=== PATIENT | male | born 1960 | race Caucasian/White ===

== ENCOUNTER 2021-02-06 16:48 | Inpatient (IN) | payer BC ==
[~2021-02-06] VITALS: Ht 182.9 cm; Wt 101.0 kg
--- NOTE | ~2021-02-06 | OP ---
[facility] [address] [place] [address] OPERATIVE REPORT Name: DAYSI COSBY Room: [address] ADM IN M.R.#: [id number] Admission: 02/06/21 Attend Phys: Rudolph Guillen Discharge: Date of : 58 Report #: [id number] THIS REPORT FOR: cc: Laya Phillips Sarah Anne FNP ~ Tonny Mcnair MD DATE OF SERVICE: 02/09/2021 PREOPERATIVE DIAGNOSES: Clot retention, gross hematuria. POSTOPERATIVE DIAGNOSES: Clot retention, gross hematuria with benign prostatic hypertrophy with obstruction. PROCEDURE PERFORMED: Cystoscopy, clot evacuation and fulguration. STAFF SURGEON: Tonny Mcnair MD BALANCE WHEEL ARM BURNISHER: None. ANESTHESIA: General. ESTIMATED BLOOD LOSS: 200 mL of old clot and 15 mL of active bleeding. FINDINGS: 200 mL of old clot in the bladder. Nodular bleeding prostate area, moderate trabeculations noted in the bladder. DRAIN: 22-Indonesian 3-way Capone catheter. INDICATIONS: The patient is a pleasant 60-year-old male admitted for altered mental status, found to have acute kidney injury with creatinine of 15.7. He was requiring emergent dialysis. Capone catheter was placed on admission and noted gross hematuria. Irrigation was initiated and was ch red in color. CT scan showed a bladder full of clot. Tried to hand irrigate at bedside, which was unsuccessful and now presents for cystoscopy, clot evacuation and possible fulguration, possible resection of bladder tumor, possible resection of the prostate. After risks and benefits of the procedure were explained, informed consent was obtained. DESCRIPTION OF PROCEDURE: The patient was taken to the operating room, comfortably placed in the dorsal lithotomy position under adequate general anesthesia. He was sterilely prepped and draped in standard fashion exposing only the genitalia. He is up-to-date within 24 hours of his antibiotic therapy. Appropriate timeout was carried out and all were in agreement. A 25-Indonesian cystoscope with 30-degree angle lens was placed into the urethra. Anterior urethra was normal. Sphincter was intact. Prostate showed [place] [address] OPERATIVE REPORT Name: DAYSI COSBY Room: [address] IN [facility].#: [id number] Admission: 02/06/21 Attend Phys: Rudolph Guillen Discharge: Date of : 58 Report #: [id number] hypertrophy with visual obstruction. Large amount of clot in the bladder, which was immediately aspirated out, approximately 200-300 mL of old clot. Once completed, it was irrigated more until clear. Thereafter, cystoscopy was performed showing actually a nodular prostate ____ protruding in the bladder, active bleeding at the bladder neck. See pictures for details. The bladder was surveyed. Moderate trabeculation was noted. No other abnormalities appreciated in the bladder. The patient in the preoperative area denied any voiding symptoms, elected just to go ahead and rather than resect his prostate, just fulgurate the bleeding. Since a lot of the bleeding was actually not necessarily in the obstructive area, but as it was growing into the bladder neck, the cystoscope was removed and a 28 resectoscope with obturator in place was blindly inserted into the urethra. The obturator was removed. An Rob resectoscope was put in place with a 26-Indonesian loop and then cauterized the bleeding areas at the bladder neck circumferentially. Meticulous hemostasis was obtained. All the clots were removed from the bladder. Care was taken not to damage either ureteral orifice. The resectoscope was removed and a 22-Indonesian 3-way Capone catheter was put in place and secured with 30 mL of sterile water over the catheter guide, crystal clear return, placed to irrigation. He tolerated the procedure extremely well. He was extubated in the operating room, transferred [facility] with assistance with recovery room in stable condition. Continue irrigation overnight. If clear, would hold the irrigation in the morning and to watch urine color and urine output. Consider voiding trial when out of the Intensive Care Unit. By: 1050 [id number] Mcnair MD /heike
--- NOTE | ~2021-02-06 | CON ---
[address] [place] [address] CONSULTATION Name: DAYSI COSBY Room: [address] ADM IN M.R.#: [id number] Admission: 02/06/21 Attend Phys: Rudolph Guillen Discharge: Date of : 58 Report #: [id number] THIS REPORT FOR: cc: Laya Phillips Sarah Anne FNP ~ Kristen Gorman MD DATE OF SERVICE: 02/08/2021 REQUESTING PHYSICIAN: Dr. Dunn. REASON FOR CONSULTATION: Lymphadenopathy. HISTORY OF PRESENT ILLNESS: The patient is a 60-year-old gentleman who is without significant past medical history, who apparently was found by family in acute confusional state. The patient apparently was covered with his feces. He lives at home with his who apparently has underlying dementia and the patient is primary property management specialist. He was brought to the hospital with altered mental status. He was found to have acute kidney injury with creatinine 25 and potassium of 9. He had a Capone catheter placed, had large volume of bloody urine. Renal consult is requested. Urology is requested for service on the case. His kidney function is getting better with hydration. He did not require dialysis. He is diagnosed with urosepsis, UTI. He is on antibiotics. He had a CT scan of abdomen done, which showed retroperitoneal lymphadenopathy. Oncology is consulted. He is sleeping, apparently confused. By nurse report, he is not able to give me any history. According to nurses, there is no known history of significant medical problems. SOCIAL HISTORY: According to chart review. Does not smoke, does not use alcohol. FAMILY HISTORY: Unable to obtain. REVIEW OF SYSTEMS: Unable to obtain. PHYSICAL EXAMINATION: GENERAL: Reveals a well-developed man, sleeping, responding by grimacing when I do physical exam. VITAL SIGNS: Blood pressure 96/71, heart rate 77, respirations 18. NECK: Supple. There is no supraclavicular, axillary lymphadenopathy. HEART: Normal S1, S2. LUNGS: Clear. ABDOMEN: Obese. EXTREMITIES: Lower extremities, no edema. There is a left lower extremity swelling is [place] [address] CONSULTATION Name: DAYSI COSBY Room: [address] IN [facility]#: [id number] Admission: 02/06/21 Attend Phys: Rudolph Guillen Discharge: Date of : 58 Report #: [id number] SKIN: Does not reveal rash. MENTAL STATUS: Lethargic, but responding to stimuli, not responding verbally, not easily arousable. LABORATORY DATA: White count 16.2, hemoglobin 12.6, platelets 271. Total protein 6.5, albumin 3.2. Sodium 150, potassium 3.5, chloride 113, CO2 of 27, BUN 65, creatinine 2.7. Urinalysis: Nitrite positive, leukocyte esterase positive, blood 3+. CT of abdomen and pelvis shows retroperitoneal lymphadenopathy, largest dominant nodule 3/5/4.1 cm. ASSESSMENT AND PLAN: Retroperitoneal lymphadenopathy. Recommend to consider CT-guided biopsy of lymph nodes. Check LDH. Left lower extremity edema. We will order Doppler ultrasound. Acute kidney injury. Management as per Renal. Urinary tract infection. Agree with management. Thank you very much for allowing me to participate in care of this patient. We will follow the patient with you. By: 07 212Kristen Gorman MD /nt
[2021-02-06 17:20] LABS: HEMATOCRIT 40.5 % (42.0-52.0); HEMOGLOBIN 12.6 gm/dL (14.0-18.0); MCH 26.8 pg (26.0-34.0); MCHC 31.1 g/dL (28.0-37.0); MCV 86.1 fL (80.0-100.0); MPV 7.4 fl. (7.2-11.1); NUCLEATED RBCS 0 /100WBC; PLATELET COUNT* 271 thou/uL (150-400); RDW-CV 16.4 % (10.5-14.5); WBC 16.2 thou/uL (4.0-11.0)
[2021-02-06 17:24] VITALS: BP 149/47
[2021-02-06 17:33] LABS: INR 1.1; PROTIME 11.6 Seconds (9.20-11.50)
[2021-02-06 17:44] LABS: URINE BLOOD 3+ (Negative); URINE COLOR DARK YELLOW; URINE GLUCOSE-RANDOM TRACE (Negative); URINE KETONES NEGATIVE (Negative); URINE LEUKOCYTES-REFLEX TRACE (Negative); URINE PROTEIN 3+ (Negative); URINE SPECIFIC GRAVITY 1.025 (1.005-1.030)
[2021-02-06 17:46] LABS: URINE BILIRUBIN 2+ (Negative); URINE NITRITE-REFLEX POSITIVE (Negative)
[2021-02-06 17:46] LABS: CALCIUM 6.1 mg/dL (8.5-10.1); CREATININE 25.5 mg/dL (0.6-1.3)
[2021-02-06 17:47] LABS: URINE CLARITY CLOUDY
[2021-02-06 17:48] LABS: ICTOTEST (BILI CONFIRMATORY) Negative (Negative)
[2021-02-06 17:49] LABS: POTASSIUM 9.7 mmol/L (3.5-5.1)
[2021-02-06 17:50] LABS: BACTERIA-REFLEX None Seen /HPF (None Seen); CASTS None Seen /LPF (None Seen); CRYSTALS None Seen /LPF (None Seen); SQUAMOUS 0-3 Few /LPF (0-3); URINE RBC >20 Many /HPF (0-2); URINE WBC-REFLEX None Seen /HPF (0-5)
[2021-02-06 17:56] LABS: ALBUMIN 3.4 g/dL (3.4-5.0); TOTAL BILIRUBIN 0.5 mg/dL (<0.1-1.0); TOTAL PROTEIN 7.7 g/dL (6.4-8.2)
[2021-02-06 17:57] LABS: ABSOLUTE LYMPHOCYTES 0.6 thou/uL (0.8-5.3); ABSOLUTE MONOCYTES 0.6 thou/uL (0.0-1.2); ABSOLUTE NEUTROPHILS 14.9 thou/uL (1.6-8.1); ATYPICAL LYMPHS 1 %; PLATELET ESTIMATE ADEQUATE
[2021-02-06 19:22] VITALS: BP 149/54
[2021-02-06 19:57] VITALS: BP 148/87
[2021-02-06 21:01] VITALS: BP 119/84
[2021-02-06 21:58] LABS: HEMOGLOBIN 11.6 gm/dL (14.0-18.0)
[2021-02-06 22:01] VITALS: BP 133/80
[2021-02-06 22:15] LABS: CALCIUM 6.1 mg/dL (8.5-10.1); TOTAL BILIRUBIN 0.5 mg/dL (<0.1-1.0); TOTAL PROTEIN 6.6 g/dL (6.4-8.2)
[2021-02-06 22:17] LABS: CREATININE 18.5 mg/dL (0.6-1.3)
[2021-02-06 23:01] LABS: BE -12.9 mmol/L (-2 to +3); PCO2 23.4 mmHg (35.0-45.0); PO2 90.4 mmHg (75.0-100.0); pH 7.308 (7.340-7.450)
[2021-02-06 23:04] VITALS: BP 140/50
[2021-02-07] VITALS (37 sets, daily range): BP systolic 82–163; BP diastolic 27–120
[2021-02-07 03:30] LABS: HEMATOCRIT 33.1 % (42.0-52.0); HEMOGLOBIN 11.1 gm/dL (14.0-18.0)
[2021-02-07 03:46] LABS: ALBUMIN 3.2 g/dL (3.4-5.0); POTASSIUM 5.1 mmol/L (3.5-5.1); TOTAL BILIRUBIN 0.6 mg/dL (<0.1-1.0); TOTAL PROTEIN 6.5 g/dL (6.4-8.2)
[2021-02-07 03:51] LABS: CREATININE 15.7 mg/dL (0.6-1.3)
[2021-02-07 03:52] LABS: CALCIUM 5.7 mg/dL (8.5-10.1)
[2021-02-07] MEDS ORDERED: HUMALOG100 UNIT/1 SUBQ (11:34)
[2021-02-07] MEDS ORDERED: FLOMAX0.4 MG PO (11:34)
[2021-02-07] MEDS ORDERED: LANTUS SUBQ (11:35)
[2021-02-07] MEDS ORDERED: INSULIN LI100 UNIT/1 SUBQ (11:40)
--- NOTE | 2021-02-07 12:56 | EKG ---
[place] [address] ELECTROCARDIOGRAM REPORT Name: ALEACRISTOFER Room: [address] ADM IN [facility].#: [id number] Admission: 02/06/21 Attend Phys: Cristofer Dunn Discharge: Date of : 58 Date of Service: 02/06/21 1656 Report #: [id number] THIS REPORT FOR: //name// [facility] ED Test Date: 2021-02-06 Test Time: 16:56:23 Pat Name: CRISTOFER COSBY Department: Room: [facility] Gender: M Human Performance Technologist: POLO : 1960 Requested By: Wilber Henriquez Order Number: [id number] MD: Montana Romo Measurements Intervals [place] Rate: 73 P: 191 VT: 196 QRS: -113 QRSD: 234 T: 47 QT: 631 QTc: 696 Interpretive Statements Sinus or ectopic atrial rhythm Marked widening of the QRS complexes; suspect electrolyte imbalance or drug effect Baseline wander in lead(s) II,III,aVF No previous ECG available for comparison Electronically Signed On 02-07-2021 12:55:53 CDT by Montana Romo [email or web address] <ELECTRONICALLY SIGNED> By: Montana Romo MD, FACC 02/07/21 1255 1656 1656 Montana Romo MD, FAC /EPI
--- NOTE | 2021-02-07 12:57 | EKG ---
[place] [address] ELECTROCARDIOGRAM REPORT Name: ALEACRISTOFER Room: [address] ADM IN ..#: [id number] Admission: 02/06/21 Attend Phys: Cristofer Dunn Discharge: Date of : 58 Date of Service: 02/06/21 1723 Report #: [id number] THIS REPORT FOR: //name// [facility] ED Test Date: 2021-02-06 Test Time: 17:23:54 Pat Name: CRISTOFER COSBY Department: Room: [address] Gender: M Bag Liner: NÉSTOR : 1960 Requested By: Wilber Henriquez Order Number: [id number] Lalit MD: Montana Romo Measurements Intervals [place] Rate: 142 P: RI: QRS: -112 QRSD: 216 T: 70 QT: 457 QTc: 703 Interpretive Statements Atrial fibrillation with a rapid response Marked QRS widening; suspect electrolyte imbalance or drug effect Artifact in lead(s) I,II,III,aVR,aVL and baseline wander in lead(s) I,III,aVL,V3 Compared to ECG 02/06/2021 16:56:23 Ectopic atrial rhythm no longer present Electronically Signed On 02-07-2021 12:56:52 CDT by Montana Romo [email or web address] <ELECTRONICALLY SIGNED> By: Montana Romo MD, [facility] 02/07/21 1256 22 172 Montana Romo MD, [facility] /EPI
--- NOTE | 2021-02-07 12:58 | EKG ---
[place] [address] ELECTROCARDIOGRAM REPORT Name: ALEACRISTOFER Room: [address] ADM IN .R.#: [id number] Admission: 02/06/21 Attend Phys: Cristofer Dunn Discharge: Date of : 58 Date of Service: 02/06/211731 Report #: [id number] THIS REPORT FOR: //name// [facility] ED Test Date: 2021-02-06 Test Time: 17:32:52 Pat Name: CRISTOFER COSBY Department: Room: [address] Gender: M Medical Educator: NÉSTOR : 1960 Requested By: Wilber Henriquez Order Number: [id number] Lalit MD: Montana Romo Measurements Intervals [place] Rate: 164 P: -8 OR: 82 QRS: -74 QRSD: 308 T: QT: QTc: 0 Interpretive Statements Sinus rhythm Prominent intraventricular conduction delay Compared to ECG 02/06/2021 17:23:54 Atrial fibrillation no longer present QRS width has diminished slightly Electronically Signed On 02-07-2021 12:58:04 CDT by Montana Romo [email or web address] <ELECTRONICALLY SIGNED> By: Montana Romo MD, [facility] 02/07/21 1258 1732 1732 Montana Romo MD, [facility] /EPI
--- NOTE | 2021-02-07 13:04 | EKG ---
[place] [address] ELECTROCARDIOGRAM REPORT Name: CRISTOFER COSBY Room: [address] ADM IN ..#: [id number] Admission: 02/06/21 Attend Phys: Cristofer Dunn Discharge: Date of : 58 Date of Service: 02/07/21927 Report #: [id number] THIS REPORT FOR: //name// [facility] Test Date: 2021-02-07 Test Time: 09:28:11 Pat Name: CRISTOFER COSBY Department: Room: [address] Gender: M Mechanical Process Engineer: : 1960 Requested By: Ernestina Dowd Order Number: [id number] Reading MD: Montana Romo Measurements Intervals [place] Rate: 120 P: [place]: QRS: -103 QRSD: 130 T: 18 QT: 389 QTc: 550 Interpretive Statements Atrial fibrillation RBBB and LAFB Compared to ECG 02/06/2021 17:32:52 Left anterior fascicular block now present Left ventricular hypertrophy no longer present Electronically Signed On 02-07-2021 13:04:37 CDT by Montana Romo [email or web address] <ELECTRONICALLY SIGNED> By: Montana Romo MD, [facility] 02/07/21 1304 0928 0928 Montana Romo MD, [facility] /EPI
[2021-02-07 13:31] LABS: POTASSIUM 3.6 mmol/L (3.5-5.1)
[2021-02-07 13:32] LABS: CALCIUM 5.8 mg/dL (8.5-10.1); CREATININE 9.4 mg/dL (0.6-1.3)
--- NOTE | 2021-02-07 13:47 | 2DMMODE ---
[place] [address] 2 D/M-MODE ECHOCARDIOGRAM Name: ALEACRISTOFER Room: [address] IN [facility]#: [id number] Admission: 02/06/21 Attend Phys: Cristofer Dunn Discharge: Date of : 58 Date of Service: 02/07/21 1347 Report #: [id number] THIS REPORT FOR: cc: Laya Phillips Sarah Anne FNP Liston, Michael J. MD [facility] ~ APPROVED REPORT Study performed: 02/07/2021 09:46:19 EXAM: Comprehensive 2D, Doppler, and color-flow Echocardiogram Patient Location: In-Patient Room #: 004 Status: routine BSA: 2.23 HR: 110 bpm BP: 113/74 mmHg Rhythm: Atrial Fibrillation Other Information Study Quality: Good Indications elevated bnp renal failure 2D Dimensions IVSd: 13.54 (7-11mm) LVOT Diam: 22.33 (18-24mm) LVDd: 34.86 mm PWd: 12.28 (7-11mm) Ascending Ao: 34.82 (22-36mm) LVDs: 19.99 (25-40mm) Aortic Root: 37.53 mm Volumes Left Atrial Volume (Systole) LA ESV Index: 19.00 mL/m2 Aortic Valve AoV Peak Lukas.: 1.39 m/s AO Peak Gr.: 7.77 mmHg LVOT Max P.54 mmHg AO Mean Gr.: 4.63 mmHg LVOT Mean P.00 mmHg LVOT Max V: 1.18 m/s AO V2 VTI: 17.57 cm LVOT Mean V: 0.81 m/s ROMINA (VTI): 3.02 cm2 LVOT V1 VTI: 13.56 [place] [address] 2 D/M-MODE ECHOCARDIOGRAM Name: CRISTOFER COSBY Room: [address] IN [facility]#: [id number] Admission: 02/06/21 Attend Phys: Cristofer Dunn Discharge: Date of : 58 Date of Service: 02/07/21 1347 Report #: [id number] Pulmonary Valve PV Peak Lukas.: 1.18 m/s PV Peak Gr.: 5.54 mmHg Tricuspid Valve RAP Estimate: 5.00 mmHg TR Peak Gr.: 23.35 mmHg RVSP: 28.00 mmHg PA Pressure: 28.00 mmHg Left Ventricle The left ventricle is normal size. There is normal LV segmental wall motion. Mild concentric left ventricular hypertrophy. Left ventricular systolic function is hyperdynamic. LVEF is >70%. This study is not technically sufficient to allow evaluation of the LV diastolic function due to atrial fibrillation. Right Ventricle The right ventricle is normal size. The right ventricular systolic function is normal. Atria The left atrium size is normal. The right atrium size is normal. Aortic Valve The aortic valve is normal in structure. No aortic regurgitation is present. There is no aortic valvular stenosis. Mitral Valve The mitral valve is normal in structure. There is no mitral valve regurgitation noted. No evidence of mitral valve stenosis. Tricuspid Valve The tricuspid valve is normal in structure. Trace tricuspid regurgitation. No pulmonary hypertension. Pulmonic Valve The pulmonary valve is normal in structure. There is no pulmonic valvular regurgitation. Great Vessels The aortic root is normal in size. IVC is normal in size and collapses >50% with inspiration. Pericardium There is no peric[place] [address] 2 D/M-MODE ECHOCARDIOGRAM Name: CRISTOFER COSBY Room: [address] IN ..#: [id number] Admission: 02/06/21 Attend Phys: Cristofer Dunn Discharge: Date of : 58 Date of Service: 02/07/21 1347 Report #: [id number] <Conclusion> The left ventricle is normal size. Mild concentric left ventricular hypertrophy. Left ventricular systolic function is hyperdynamic. LVEF is >70%. This study is not technically sufficient to allow evaluation of the LV diastolic function due to atrial fibrillation. Trace tricuspid regurgitation. No pulmonary hypertension. IVC is normal in size and collapses >50% with inspiration. <ELECTRONICALLY SIGNED> By: Curtis Munguia MD, FACC 02/07/21 134 46 46 Curtis Munguia MD, FACC /INF
[2021-02-07 18:31] LABS: POTASSIUM 3.1 mmol/L (3.5-5.1)
[2021-02-07 18:34] LABS: CREATININE 6.9 mg/dL (0.6-1.3)
[2021-02-07 18:35] LABS: CALCIUM 5.7 mg/dL (8.5-10.1)
[2021-02-07 21:06] LABS: COMPLEMENT-C4 18 mg/dL (12-38)
[2021-02-07 22:06] LABS: HEPATITIS B SURFACE AG Negative (Negative)
[2021-02-08] VITALS (46 sets, daily range): BP systolic 77–141; BP diastolic 26–85
[2021-02-08 05:11] LABS: HEMATOCRIT 25.3 % (42.0-52.0); HEMOGLOBIN 8.6 gm/dL (14.0-18.0)
[2021-02-08 05:14] LABS: CALCIUM 6.4 mg/dL (8.5-10.1); POTASSIUM 3.3 mmol/L (3.5-5.1)
[2021-02-08 05:29] LABS: CALCIUM 6.4 mg/dL (8.5-10.1); CREATININE 3.9 mg/dL (0.6-1.3); PHOSPHORUS* 3.8 mg/dL (2.5-4.9)
[2021-02-08 05:37] LABS: CREATININE 3.8 mg/dL (0.6-1.3)
[2021-02-08 05:45] LABS: MAGNESIUM 2.5 mg/dL (1.8-2.4); PHOSPHORUS* 3.6 mg/dL (2.5-4.9)
[2021-02-08 13:47] LABS: HEMATOCRIT 27.1 % (42.0-52.0); HEMOGLOBIN 9.2 gm/dL (14.0-18.0)
[2021-02-08 13:54] LABS: CALCIUM 7.5 mg/dL (8.5-10.1); CREATININE 2.7 mg/dL (0.6-1.3); POTASSIUM 3.5 mmol/L (3.5-5.1)
[2021-02-09] VITALS (26 sets, daily range): BP systolic 95–147; BP diastolic 42–69
[2021-02-09 04:46] LABS: HEMATOCRIT 21.7 % (42.0-52.0); HEMOGLOBIN 7.5 gm/dL (14.0-18.0); MCH 27.4 pg (26.0-34.0); MCHC 34.4 g/dL (28.0-37.0); RBC 2.73 mil/uL (4.50-6.00); RDW-CV 15.3 % (10.5-14.5); WBC 8.6 thou/uL (4.0-11.0)
[2021-02-09 04:58] LABS: CALCIUM 6.9 mg/dL (8.5-10.1); CREATININE 1.6 mg/dL (0.6-1.3); POTASSIUM 3.5 mmol/L (3.5-5.1)
[2021-02-09 05:19] LABS: MCV 79.7 fL (80.0-100.0)
[2021-02-09 08:08] LABS: GLOBULIN TOTAL 2.1 g/dL (2.2-3.9); M-SPIKE Not Observed g/dL (Not Observed)
--- NOTE | 2021-02-09 10:21 | EKG ---
[place] [address] ELECTROCARDIOGRAM REPORT Name: ALEACRISTOFER Room: [address] ADM IN ..#: [id number] Admission: 02/06/21 Attend Phys: Cristofer Dunn Discharge: Date of : 58 Date of Service: 02/09/21825 Report #: [id number] THIS REPORT FOR: //name// [facility] Test Date: 2021-02-09 Test Time: 08:26:31 Pat Name: CRISTOFER COSBY Department: Room: [address] Gender: M Bottom Scrubber: DARA : 1960 Requested By: Ernestina Dowd Order Number: [id number] Reading MD: Curtis Munguia Measurements Intervals [place] Rate: 87 P: 52 CO: 150 QRS: -85 QRSD: 116 T: 56 QT: 408 QTc: 491 Interpretive Statements Sinus rhythm Atrial premature complexes Left anterior fascicular block Consider anterior infarct Compared to ECG 02/07/2021 09:28:11 Atrial premature complex(es) now present Myocardial infarct finding now present Atrial fibrillation no longer present Right bundle-branch block no longer present Electronically Signed On 02-09-2021 10:21:34 CDT by Curtis Munguia [email or web address] <ELECTRONICALLY SIGNED> By: Curtis Munguia MD, [facility] 02/09/21 1021 5 5 Curtis Munguia MD, [facility] /EPI
[2021-02-09 15:12] LABS: CREATININE 1.4 mg/dL (0.6-1.3); POTASSIUM 3.5 mmol/L (3.5-5.1)
[2021-02-09 15:13] LABS: ABSOLUTE BASOPHILS 0.1 thou/uL (0.0-0.2); ABSOLUTE LYMPHOCYTES 1.1 thou/uL (0.8-5.3); BASOPHILS 0.7 %; EOSINOPHILS 0.5 %; HEMATOCRIT 22.2 % (42.0-52.0); HEMOGLOBIN 7.5 gm/dL (14.0-18.0); LYMPHOCYTES 11.6 %; MCH 27.5 pg (26.0-34.0); MONOCYTES 10.5 %; MPV 6.7 fl. (7.2-11.1); NUCLEATED RBCS 0 /100WBC; PLATELET COUNT* 224 thou/uL (150-400); POLYS 76.7 %; RBC 2.75 mil/uL (4.50-6.00); RDW-CV 15.1 % (10.5-14.5); WBC 9.1 thou/uL (4.0-11.0)
[2021-02-10] VITALS (22 sets, daily range): BP systolic 105–130; BP diastolic 41–69
[2021-02-10 03:40] LABS: ABSOLUTE EOSINOPHILS 0.1 thou/uL (0.0-0.7); ABSOLUTE LYMPHOCYTES 1.1 thou/uL (0.8-5.3); ABSOLUTE MONOCYTES 0.9 thou/uL (0.0-1.2); ABSOLUTE NEUTROPHILS 6.8 thou/uL (1.6-8.1); BASOPHILS 0.5 %; EOSINOPHILS 0.6 %; HEMATOCRIT 21.5 % (42.0-52.0); HEMOGLOBIN 7.3 gm/dL (14.0-18.0); LYMPHOCYTES 12.7 %; MCH 27.5 pg (26.0-34.0); MCV 80.9 fL (80.0-100.0); MONOCYTES 10.1 %; MPV 6.8 fl. (7.2-11.1); NUCLEATED RBCS 0 /100WBC; PLATELET COUNT* 235 thou/uL (150-400); POLYS 76.1 %; RBC 2.66 mil/uL (4.50-6.00); RDW-CV 15.4 % (10.5-14.5); WBC 8.9 thou/uL (4.0-11.0)
[2021-02-10 03:56] LABS: CALCIUM 7.5 mg/dL (8.5-10.1); CREATININE 1.2 mg/dL (0.6-1.3); POTASSIUM 3.6 mmol/L (3.5-5.1)
[2021-02-10 09:45] LABS: HYPOCHROMASIA 1+; MICROCYTES 2+; PLATELET ESTIMATE ADEQUATE
[2021-02-11] VITALS (7 sets, daily range): BP systolic 98–122; BP diastolic 42–70
[2021-02-11 04:44] LABS: HEMATOCRIT 20.1 % (42.0-52.0); MCH 27.7 pg (26.0-34.0); MCHC 33.9 g/dL (28.0-37.0); MCV 81.8 fL (80.0-100.0); MPV 7.1 fl. (7.2-11.1); RBC 2.46 mil/uL (4.50-6.00); RDW-CV 15.1 % (10.5-14.5); WBC 9.6 thou/uL (4.0-11.0)
[2021-02-11 04:54] LABS: HEMOGLOBIN 6.8 gm/dL (14.0-18.0)
[2021-02-11 04:57] LABS: CALCIUM 7.4 mg/dL (8.5-10.1); CREATININE 1.1 mg/dL (0.6-1.3); POTASSIUM 3.4 mmol/L (3.5-5.1)
[2021-02-11] MEDS ORDERED: METOPROLOL TART25 MG PO (09:55)
[2021-02-11 14:55] LABS: % SATURATION 19 % (20-39); IRON 32 ug/dL (50-175)
[2021-02-11] MEDS ORDERED: FINASTERIDE5 MG PO (17:23)
[2021-02-11] MEDS ORDERED: ROCALTROL0.25 MCG PO (17:23)
[2021-02-11] MEDS ORDERED: PROTONIX40 M2 PO (17:23)
[2021-02-12] VITALS: BP 114/49
[2021-02-12 04:57] VITALS: BP 118/61
[2021-02-12 08:00] VITALS: BP 123/52
[2021-02-12 12:00] VITALS: BP 103/39
[2021-02-12 16:00] VITALS: BP 112/42
[2021-02-12 20:00] VITALS: BP 117/57
[2021-02-13 00:34] VITALS: BP 112/62
[2021-02-13 04:16] VITALS: BP 123/53
[2021-02-13 11:00] VITALS: BP 102/54
[2021-02-13 12:30] VITALS: BP 119/53
[2021-02-13 16:31] VITALS: BP 102/54
[2021-02-13 20:00] VITALS: BP 111/51
[2021-02-14] VITALS (7 sets, daily range): BP systolic 103–118; BP diastolic 46–57
[2021-02-14 11:40] LABS: ABSOLUTE BASOPHILS 0.1 thou/uL (0.0-0.2); ABSOLUTE EOSINOPHILS 0.1 thou/uL (0.0-0.7); ABSOLUTE MONOCYTES 0.9 thou/uL (0.0-1.2); ABSOLUTE NEUTROPHILS 6.1 thou/uL (1.6-8.1); BASOPHILS 0.7 %; EOSINOPHILS 1.5 %; HEMOGLOBIN 7.8 gm/dL (14.0-18.0); MCH 27.6 pg (26.0-34.0); MCHC 33.9 g/dL (28.0-37.0); MCV 81.6 fL (80.0-100.0); MONOCYTES 11.4 %; MPV 7.1 fl. (7.2-11.1); NUCLEATED RBCS 0 /100WBC; PLATELET COUNT* 280 thou/uL (150-400); POLYS 74.4 %; RBC 2.82 mil/uL (4.50-6.00); RDW-CV 15.5 % (10.5-14.5); WBC 8.1 thou/uL (4.0-11.0)
[2021-02-14 11:41] LABS: ALBUMIN 2.2 g/dL (3.4-5.0); CALCIUM 7.7 mg/dL (8.5-10.1); CREATININE 1.1 mg/dL (0.6-1.3); POTASSIUM 3.5 mmol/L (3.5-5.1); TOTAL BILIRUBIN 0.3 mg/dL (<0.1-1.0); TOTAL PROTEIN 5.5 g/dL (6.4-8.2)
[2021-02-15 00:36] VITALS: BP 116/53
[2021-02-15 03:46] VITALS: BP 123/54
[2021-02-15 07:40] VITALS: BP 117/49
[2021-02-15 15:51] VITALS: BP 108/54
[2021-02-15 20:00] VITALS: BP 116/52
[2021-02-16 00:19] VITALS: BP 90/48
[2021-02-16 04:43] VITALS: BP 108/48
[2021-02-16 13:34] VITALS: BP 96/45
[2021-02-16 17:55] VITALS: BP 120/54
[2021-02-16 20:00] VITALS: BP 108/57
[2021-02-16 23:47] VITALS: BP 127/55
[2021-02-17 04:00] VITALS: BP 125/58
[2021-02-17 08:00] VITALS: BP 131/56
[2021-02-17 12:26] VITALS: BP 106/51
== END 2021-02-17 14:52 | disposition home or self-care (01) | DRG 665 ==
LOC: M.ERS 16:48 → M.TBA-ER 18:18 → M.ICU 18:18 → M.2W 18:18 → M.ICU 20:00 → M.2W 02-10 10:49
PROVIDERS: Emergency Medicine Emergency Medical Services; Family Medicine; Internal Medicine Hematology & Oncology; Internal Medicine Nephrology; ADMIT Internal Medicine; ATTEND Internal Medicine
PROC: 02HV33Z Insertion of Infusion Device into Superior Vena Cava, Percutaneous Approach (ICD-10-PCS; principal; 2021-02-07)
PROC: B5181ZA Fluoroscopy of Superior Vena Cava using Low Osmolar Contrast, Guidance (ICD-10-PCS; principal; 2021-02-07)
PROC: B548ZZA Ultrasonography of Superior Vena Cava, Guidance (ICD-10-PCS; principal; 2021-02-07)
PROC: 0V508ZZ Destruction of Prostate, Via Natural or Artificial Opening Endoscopic (ICD-10-PCS; 2021-02-09)
PROC: 0TCC8ZZ Extirpation of Matter from Bladder Neck, Via Natural or Artificial Opening Endoscopic (ICD-10-PCS; 2021-02-09)
DX: N39.0 Urinary tract infection, site not specified (principal); G93.41 Metabolic encephalopathy; N17.0 Acute kidney failure with tubular necrosis; I21.A1 Myocardial infarction type 2; M62.82 Rhabdomyolysis; I47.2 Ventricular tachycardia; E87.2 Acidosis; E87.1 Hypo-osmolality and hyponatremia; N40.1 Benign prostatic hyperplasia with lower urinary tract symptoms; N13.8 Other obstructive and reflux uropathy; R59.1 Generalized enlarged lymph nodes; E87.5 Hyperkalemia; R31.0 Gross hematuria; D72.829 Elevated white blood cell count, unspecified; E83.51 Hypocalcemia; R59.9 Enlarged lymph nodes, unspecified; I95.9 Hypotension, unspecified; D64.9 Anemia, unspecified; I48.0 Paroxysmal atrial fibrillation; Z79.899 Other long term (current) drug therapy; Z20.822 Contact with and (suspected) exposure to COVID-19

== ENCOUNTER 2021-02-17 11:10 | Inpatient (IN) | payer BC ==
[~2021-02-17] VITALS: Ht 182.9 cm; Wt 98.9 kg
[~2021-02-17 11:10] MED LIST: FINASTERIDE5 MG PO; FLOMAX0.4 MG PO; HUMALOG100 UNIT/1 SUBQ; INSULIN LI100 UNIT/1 SUBQ; LANTUS SUBQ; METOPROLOL TART25 MG PO; PROTONIX40 M2 PO; ROCALTROL0.25 MCG PO
[2021-02-17 20:09] VITALS: BP 117/54
[2021-02-18 04:40] LABS: HEMATOCRIT 24.7 % (42.0-52.0); HEMOGLOBIN 8.2 gm/dL (14.0-18.0); MCH 27.1 pg (26.0-34.0); MCV 82.1 fL (80.0-100.0); RBC 3.01 mil/uL (4.50-6.00); RDW-CV 16.1 % (10.5-14.5); WBC 7.3 thou/uL (4.0-11.0)
[2021-02-18 04:57] LABS: CALCIUM 8.3 mg/dL (8.5-10.1); POTASSIUM 4.3 mmol/L (3.5-5.1)
[2021-02-18 08:00] VITALS: BP 135/61
[2021-02-18 20:22] VITALS: BP 101/50
[2021-02-19 08:29] VITALS: BP 133/61
[2021-02-19 19:58] VITALS: BP 95/53
[2021-02-20 04:23] LABS: HEMOGLOBIN 7.7 gm/dL (14.0-18.0); MCH 27.1 pg (26.0-34.0); MCHC 33.3 g/dL (28.0-37.0); MCV 81.3 fL (80.0-100.0); MPV 6.4 fl. (7.2-11.1); RBC 2.83 mil/uL (4.50-6.00); RDW-CV 16.2 % (10.5-14.5)
[2021-02-20 04:42] LABS: ALBUMIN 2.3 g/dL (3.4-5.0); CALCIUM 8.2 mg/dL (8.5-10.1); CREATININE 1.1 mg/dL (0.6-1.3); MAGNESIUM 1.9 mg/dL (1.8-2.4); POTASSIUM 3.8 mmol/L (3.5-5.1); TOTAL BILIRUBIN 0.4 mg/dL (<0.1-1.0); TOTAL PROTEIN 5.8 g/dL (6.4-8.2)
[2021-02-20 08:00] VITALS: BP 130/56
[2021-02-20 19:00] VITALS: BP 119/64
[2021-02-21 04:52] LABS: HEMATOCRIT 23.3 % (42.0-52.0); HEMOGLOBIN 7.8 gm/dL (14.0-18.0); MCH 27.2 pg (26.0-34.0); MCHC 33.6 g/dL (28.0-37.0); MPV 6.7 fl. (7.2-11.1); RBC 2.87 mil/uL (4.50-6.00); RDW-CV 16.4 % (10.5-14.5); WBC 5.2 thou/uL (4.0-11.0)
[2021-02-21 04:53] LABS: ALBUMIN 2.4 g/dL (3.4-5.0); CALCIUM 8.7 mg/dL (8.5-10.1); CREATININE 1.3 mg/dL (0.6-1.3); POTASSIUM 3.7 mmol/L (3.5-5.1); TOTAL BILIRUBIN 0.4 mg/dL (<0.1-1.0); TOTAL PROTEIN 5.9 g/dL (6.4-8.2)
[2021-02-21 07:30] VITALS: BP 121/54
[2021-02-21 19:00] VITALS: BP 119/55
[2021-02-22 06:11] LABS: HEMATOCRIT 25.6 % (42.0-52.0); HEMOGLOBIN 8.7 gm/dL (14.0-18.0); MCH 27.5 pg (26.0-34.0); MCHC 33.9 g/dL (28.0-37.0); MCV 81.2 fL (80.0-100.0); MPV 6.2 fl. (7.2-11.1); RBC 3.16 mil/uL (4.50-6.00); RDW-CV 17.1 % (10.5-14.5); WBC 4.9 thou/uL (4.0-11.0)
[2021-02-22 06:18] LABS: CALCIUM 8.3 mg/dL (8.5-10.1); CREATININE 1.1 mg/dL (0.6-1.3); POTASSIUM 3.7 mmol/L (3.5-5.1)
[2021-02-22 07:30] VITALS: BP 118/61
[2021-02-22 20:12] VITALS: BP 130/61
[2021-02-23 08:19] VITALS: BP 137/65
[2021-02-23 15:33] VITALS: BP 137/65
[2021-02-23 20:45] VITALS: BP 120/55
[2021-02-24 08:22] VITALS: BP 133/55
[2021-02-24] MEDS ORDERED: FERREX 150 PLU1 EAC1 PO (09:18)
[2021-02-24] MEDS ORDERED: FINASTERIDE5 MG PO ×2 (09:18→09:20)
[2021-02-24] MEDS ORDERED: FLOMAX0.4 MG PO (09:18)
[2021-02-24] MEDS ORDERED: METOPROLOL TART25 MG PO (09:18)
[2021-02-24] MEDS ORDERED: LANTUS SUBQ (09:20)
[2021-02-24] MEDS ORDERED: PROTONIX40 M2 PO (09:20)
[2021-02-24] MEDS ORDERED: ROCALTROL0.25 MCG PO (09:20)
[2021-02-24] MEDS ORDERED: INSULIN LI100 UNIT/1 SUBQ (09:20)
[2021-02-24 20:00] VITALS: BP 135/57
[2021-02-25 07:54] VITALS: BP 121/55
[2021-02-25 08:45] VITALS: BP 121/55
== END 2021-02-25 12:46 | disposition home health service (06) | DRG 948 ==
LOC: M.REH 11:10
PROVIDERS: Internal Medicine; ADMIT Physical Medicine & Rehabilitation; ATTEND Physical Medicine & Rehabilitation
DX: R53.81 Other malaise (principal); C79.51 Secondary malignant neoplasm of bone; N17.9 Acute kidney failure, unspecified; M62.82 Rhabdomyolysis; D64.9 Anemia, unspecified; C61 Malignant neoplasm of prostate; N40.1 Benign prostatic hyperplasia with lower urinary tract symptoms; R33.8 Other retention of urine; E11.22 Type 2 diabetes mellitus with diabetic chronic kidney disease; N18.2 Chronic kidney disease, stage 2 (mild); E87.5 Hyperkalemia; I48.91 Unspecified atrial fibrillation; I95.9 Hypotension, unspecified; R31.0 Gross hematuria; Z79.4 Long term (current) use of insulin

== ENCOUNTER 2021-03-08 12:47 | Emergency (ER) | payer BC ==
[~2021-03-08] VITALS: Ht 182.9 cm; Wt 91.6 kg
[~2021-03-08 12:47] MED LIST changes: +FERREX 150 PLU1 EAC1 PO
[2021-03-08 13:16] LABS: URINE BLOOD 3+ (Negative); URINE CLARITY CLEAR; URINE COLOR YELLOW; URINE GLUCOSE-RANDOM NEGATIVE (Negative); URINE KETONES NEGATIVE (Negative); URINE LEUKOCYTES-REFLEX 1+ (Negative); URINE PROTEIN 3+ (Negative); URINE SPECIFIC GRAVITY >= 1.030 (1.005-1.030)
[2021-03-08 13:26] LABS: URINE BILIRUBIN 2+ (Negative); URINE NITRITE-REFLEX POSITIVE (Negative)
[2021-03-08 13:27] LABS: ICTOTEST (BILI CONFIRMATORY) Positive (Negative)
[2021-03-08 13:29] LABS: CASTS None Seen /LPF (None Seen); CRYSTALS None Seen /LPF (None Seen); SQUAMOUS 0-3 Few /LPF (0-3); URINE RBC 3-10 Few /HPF (0-2); URINE WBC-REFLEX 6-15 Few /HPF (0-5)
[2021-03-08] MEDS ORDERED: CEPHALEXIN500 MG PO (13:38)
[2021-03-08 13:49] VITALS: BP 114/70
== END 2021-03-08 13:49 | disposition home or self-care (01) ==
LOC: M.ERS 12:47
PROVIDERS: Nurse Practitioner Family
DX: N39.0 Urinary tract infection, site not specified (principal); E11.22 Type 2 diabetes mellitus with diabetic chronic kidney disease; N18.9 Chronic kidney disease, unspecified; Z79.4 Long term (current) use of insulin

== ENCOUNTER 2021-12-07 17:31 | Inpatient (IN) | payer BC ==
[~2021-12-07] VITALS: Ht 182.9 cm; Wt 99.8 kg
[~2021-12-07 17:31] MED LIST changes: +CEPHALEXIN500 MG PO
[2021-12-07 17:53] VITALS: BP 115/76
[2021-12-07 18:35] LABS: HEMATOCRIT 31.3 % (42.0-52.0); HEMOGLOBIN 10.4 gm/dL (14.0-18.0); MCHC 33.3 g/dL (28.0-37.0); MCV 78.1 fL (80.0-100.0); MPV 5.9 fl. (7.2-11.1); NUCLEATED RBCS 0 /100WBC; PLATELET COUNT* 405 thou/uL (150-400); RDW-CV 16.4 % (10.5-14.5); WBC 13.1 thou/uL (4.0-11.0)
[2021-12-07 18:39] LABS: CALCIUM 9.1 mg/dL (8.5-10.1); POTASSIUM 3.7 mmol/L (3.5-5.1)
[2021-12-07 18:49] LABS: ALBUMIN 3.1 g/dL (3.4-5.0); TOTAL PROTEIN 7.6 g/dL (6.4-8.2)
[2021-12-07 18:50] LABS: ABSOLUTE LYMPHOCYTES 0.7 thou/uL (0.8-5.3); ABSOLUTE MONOCYTES 0.8 thou/uL (0.0-1.2); ABSOLUTE NEUTROPHILS 11.7 thou/uL (1.6-8.1); PLATELET ESTIMATE INCREASED
[2021-12-07] MEDS ORDERED: ZYTIGA250 MG PO (21:19)
[2021-12-07] MEDS ORDERED: PREDNISONE 10 M10 MG PO (21:20)
[2021-12-07 21:49] VITALS: BP 125/89
[2021-12-07 22:10] VITALS: BP 171/82
[2021-12-08 03:24] VITALS: BP 166/75
[2021-12-08 08:00] VITALS: BP 133/62
--- NOTE | 2021-12-08 08:11 | NUR ---
Admit at 2215 last night. He has necrotic areas to his L foot. One of his toes was amputated about a year ago, he stated. His whole foot is red and edemedous and there is dark black tissue and yellow slough tissue. It has a foul odor. Pictures were taken and dressing was applied. I did leave mewsage on Dr Calix's voicemail regarding necrotic foot. I have made him NPO since midnight. He denies pain. He has slept well.
--- NOTE | 2021-12-08 10:06 | EKG ---
[place] [address] ELECTROCARDIOGRAM REPORT Name: DAYSI COSBY Room: [address] ADM IN ..#: [id number] Admission: 12/07/21 Attend Phys: Serenity Cage, Discharge: Date of : 58 Date of Service: 12/08/21 0933 Report #: [id number] THIS REPORT FOR: //name// [facility] Test Date: 2021-12-08 Test Time: 09:33:29 Pat Name: DAYSI COSBY Department: Room: [address] Gender: M Inventory Control/Shipping Receiving: CARLOS : 1960 Requested By: Cyrus An Order Number: [id number] Lalit MD: Von Llanos Measurements Intervals [place] Rate: 83 P: 37 MA: 176 QRS: -75 QRSD: 125 T: 35 QT: 397 QTc: 467 Interpretive Statements Sinus rhythm Nonspecific IVCD with LAD Consider anterior infarct Compared to ECG 02/09/2021 08:26:31 Atrial premature complex(es) no longer present Myocardial infarct finding still present Electronically Signed On 12-08-2021 10:06:23 SENIOR TEST ENGINEER by Von Llanos [email or web address] <ELECTRONICALLY SIGNED> By: Von Llanos MD, FAC 12/08/21 1006 Von Llanos MD, FAC /EPI
[2021-12-08] MEDS ORDERED: COZAAR 25 MG TA25 M1 PO (12:16)
[2021-12-08] MEDS ORDERED: FLOMAX0.4 MG PO (12:17)
[2021-12-08 12:26] VITALS: BP 120/69
[2021-12-08 15:20] LABS: ABSOLUTE BASOPHILS 0.1 thou/uL (0.0-0.2); ABSOLUTE LYMPHOCYTES 0.8 thou/uL (0.8-5.3); ABSOLUTE MONOCYTES 0.6 thou/uL (0.0-1.2); ABSOLUTE NEUTROPHILS 10.5 thou/uL (1.6-8.1); BASOPHILS 0.5 %; EOSINOPHILS 0.1 %; HEMATOCRIT 28.8 % (42.0-52.0); HEMOGLOBIN 9.6 gm/dL (14.0-18.0); LYMPHOCYTES 6.3 %; MCH 26.4 pg (26.0-34.0); MCHC 33.4 g/dL (28.0-37.0); MCV 79.1 fL (80.0-100.0); MONOCYTES 5.4 %; MPV 5.8 fl. (7.2-11.1); NUCLEATED RBCS 0 /100WBC; PLATELET COUNT* 336 thou/uL (150-400); POLYS 87.7 %; RBC 3.64 mil/uL (4.50-6.00); RDW-CV 15.9 % (10.5-14.5); WBC 11.9 thou/uL (4.0-11.0)
[2021-12-08 15:32] LABS: CALCIUM 8.2 mg/dL (8.5-10.1); CREATININE 0.9 mg/dL (0.6-1.3); POTASSIUM 4.4 mmol/L (3.5-5.1)
--- NOTE | 2021-12-08 16:13 | NUR ---
CM ASSESSMENT: PT A&O, INDEPENDENT WITH ADL'S, AND ACTIVE PRIOR TO ADMIT. PT RESIDES AT HOME ALONE. PT USES [facility] FOR MOBILITY. NO OTHER DME. PT HAS PAST HX OF HH. PT HAS 0 HX OF SNF. NO CM D/C PLANNING NEEDS ANTICIPATED AT THIS TIME. CM WILL REMAIN AVAILABLE TO ASSIST AND FOLLOW NEEDED.
[2021-12-08 16:31] LABS: ESR (SEDRATE) 122 mm/hr (0-20)
[2021-12-08 17:00] VITALS: BP 143/78
[2021-12-08 20:00] VITALS: BP 144/62
[2021-12-09 04:00] VITALS: BP 174/84
[2021-12-09 08:00] VITALS: BP 166/76
--- NOTE | 2021-12-09 09:58 | CON ---
[address] [address] CONSULTATION Name: DAYSI COSBY Room: [address] IN [facility]#: [id number] Admission: 12/07/21 Attend Phys: Serenity Cage MD Discharge: Date of : 58 Report #: [id number] THIS REPORT FOR: cc: Laya Phillips Sarah Anne FNP Blick, David R. MD [facility] ~ cc: ARIANE Zaman DATE OF CONSULTATION: 12/08/2021 CARDIOLOGY CONSULTATION HISTORY OF PRESENT ILLNESS: The patient is a 61-year-old white male who I was asked to see in the hospital today following surgery. The patient has a long history of diabetes. He was here a year ago in 01/2021 with hematuria. He apparently went into atrial fibrillation, converted on IV amiodarone. He was seen by Cardiology at that time and was discharged. Recently, he developed a sore on his left foot. He was found to have evidence of osteomyelitis and was going [facility]. He was electively admitted earlier today and underwent left foot surgery. Because of his history of heart disease, cardiology consultation requested. The patient is not very active because of foot ulcer, but denies recent chest pain, shortness of breath, palpitations, syncope, peripheral edema. PAST MEDICAL HISTORY: He has had previous surgery on his left foot because of an ulcer requiring removal of the left toe. He denies a history of PAD. He has had previous broken ankle, requiring surgery. He has had knee surgery. He has a history of prostate cancer, he currently receives chemotherapy by an oncologist. He does have a history of diabetes and hypertension. CURRENT MEDICATIONS: Consists of Proscar, losartan, Flomax. He is on insulin. ALLERGIES: He has no known drug allergies. FAMILY HISTORY: Significant for diabetes. SOCIAL HISTORY: He is a retired mailman. He is . No smoking, alcohol abuse. He lives in [place], [place]. REVIEW OF SYSTEMS: No history of stroke. He had asthma as a child. No history of liver disease, kidney disease, psychiatric illness, chronic skin condition. PHYSICAL EXAMINATION: GENERAL: Revealed an elderly male, lying in bed, appeared in no distress. VITAL SIGNS: He had a blood pressure of 120/60, pulse is 80. [place] [address] CONSULTATION Name: DAYSI COSBY Room: [address]#: [id number] Admission: 12/07/21 Attend Phys: Serenity Cage MD Discharge: Date of : 58 Report #: [id number] HEENT: He was anicteric. Conjunctivae pink. Mucosa moist. NECK: Veins do not appear distended. No carotid bruits. CHEST: Clear to auscultation. HEART: Regular rate and rhythm. ABDOMEN: Soft. EXTREMITIES: Had no edema. SKIN: Cool and dry. NEUROLOGIC: Nonfocal. DIAGNOSTIC STUDIES: There is an ECG on the chart from earlier this morning that showed a sinus rhythm, left anterior fascicular block, poor R-wave progression. The patient had an echocardiogram done a year ago in January that showed ejection fraction over 65%, left ventricular hypertrophy. The patient had a portable chest x-ray last January that showed some atelectasis, otherwise unremarkable. LABORATORY DATA: His lab work today, potassium 3.7, creatinine 1.0. His albumin was 3.1. His hematocrit is 31.3, it was actually 20 a year ago. COVID antigen stat test was negative. IMPRESSION AND RECOMMENDATIONS: 1. Diabetes. The patient is on insulin. 2. Hypertension. The patient is on an ARB. 3. Recent foot surgery. I would consider PAD. 4. History of prostate cancer. 5. History of atrial fibrillation. No recent recurrences. <ELECTRONICALLY SIGNED> By: Von Llanos MD, FACC 12/09/21 0958 1248 [id number] Llanos MD, FACC /nt
[2021-12-09 10:22] LABS: HEMATOCRIT 27.3 % (42.0-52.0); HEMOGLOBIN 9.1 gm/dL (14.0-18.0); MCH 26.5 pg (26.0-34.0); MCHC 33.3 g/dL (28.0-37.0); MCV 79.6 fL (80.0-100.0); MPV 5.8 fl. (7.2-11.1); RBC 3.43 mil/uL (4.50-6.00); RDW-CV 16.1 % (10.5-14.5); WBC 7.8 thou/uL (4.0-11.0)
[2021-12-09 10:37] LABS: ALBUMIN 2.3 g/dL (3.4-5.0); ALKALINE PHOSPHATASE 110 U/L (46-116); ANION GAP 8 mmol/L (7-16); BUN 12 mg/dL (7-18); CALCIUM 8.3 mg/dL (8.5-10.1); CHLORIDE 106 mmol/L (98-107); CO2 26 mmol/L (21-32); CREATININE 0.9 mg/dL (0.6-1.3); GLUCOSE 244 mg/dL (70-99); MAGNESIUM 1.9 mg/dL (1.8-2.4); POTASSIUM 4.3 mmol/L (3.5-5.1); SGOT 7 U/L (15-37); SGPT 11 U/L (30-65); SODIUM 140 mmol/L (136-145); TOTAL BILIRUBIN 0.6 mg/dL (<0.1-1.0); TOTAL PROTEIN 6.2 g/dL (6.4-8.2); TRIGLYCERIDE 118 mg/dL (<150); VLDL 24 mg/dL (<40)
[2021-12-09 11:14] LABS: CHOLESTEROL 110 mg/dL (<200); HDL CHOLESTEROL 40 mg/dL (>40); LDL CHOLESTEROL 46 mg/dL (<100); TC:HDL 2.8 Ratio (Not establshd)
[2021-12-09 11:28] LABS: SERUM ASSESSMENT Clear
[2021-12-09 16:00] VITALS: BP 159/81
--- NOTE | 2021-12-09 18:19 | NUR ---
Patient is A+Ox4, pleasent and cooperative. Dx. diabetic ulcer of foot and osteomylitis. Had amputation of toes on left foot with clean dry dressing intact. NWB to LLE. LCTA, BS+x4, no edema noted to extremities. Voices no c/o pain or discomfort, patiebt has a pleasent disposition. Mediocatios and treatments given per physcains orders. Will contniue with the plan of care.
[2021-12-09 20:15] VITALS: BP 145/69
[2021-12-10] VITALS: BP 172/71
[2021-12-10 04:00] VITALS: BP 179/79
[2021-12-10 04:20] LABS: HEMATOCRIT 25.7 % (42.0-52.0); HEMOGLOBIN 8.5 gm/dL (14.0-18.0); MCH 26.2 pg (26.0-34.0); MCHC 33.2 g/dL (28.0-37.0); MPV 5.7 fl. (7.2-11.1); RBC 3.25 mil/uL (4.50-6.00); RDW-CV 16.2 % (10.5-14.5); WBC 7.4 thou/uL (4.0-11.0)
[2021-12-10 04:35] LABS: ALBUMIN 2.1 g/dL (3.4-5.0); CALCIUM 8.1 mg/dL (8.5-10.1); CREATININE 0.9 mg/dL (0.6-1.3); MAGNESIUM 1.8 mg/dL (1.8-2.4); POTASSIUM 3.5 mmol/L (3.5-5.1); TOTAL BILIRUBIN 0.4 mg/dL (<0.1-1.0); TOTAL PROTEIN 5.8 g/dL (6.4-8.2)
[2021-12-10 08:00] VITALS: BP 149/69
[2021-12-10 16:00] VITALS: BP 138/61
--- NOTE | 2021-12-10 18:00 | NUR ---
Patient is A+Ox4, and very pleasent. Dx diabetic ulcer of left foot, osteomylitis. Surgery physcian was in to see patient this AM and changed dressing to his left foot. LCTA, BS+X4, no edema noted to extremeties. Patient voices no c/o pain or discomfort, IV in left AC was discontinued and new IV placed by RN in left hand. Medications and treatments given per physcian orders. Call light with in reach. Will continue with the plan of care.
[2021-12-10 20:00] VITALS: BP 158/84
[2021-12-11 03:57] LABS: HEMATOCRIT 27.5 % (42.0-52.0); HEMOGLOBIN 9.4 gm/dL (14.0-18.0); MCH 26.9 pg (26.0-34.0); MCHC 34.3 g/dL (28.0-37.0); MCV 78.4 fL (80.0-100.0); MPV 5.7 fl. (7.2-11.1); RBC 3.51 mil/uL (4.50-6.00); RDW-CV 16.3 % (10.5-14.5)
[2021-12-11 04:00] VITALS: BP 169/84
[2021-12-11 04:21] LABS: CALCIUM 8.4 mg/dL (8.5-10.1); MAGNESIUM 1.9 mg/dL (1.8-2.4)
[2021-12-11 08:00] VITALS: BP 155/70
--- NOTE | 2021-12-11 13:25 | NUR ---
PLAN OF CARE: PLAN FOR THE PT TO RETURN HOME AT D/C. HOWEVER THIS D/C PLAN IS TBD AT THIS TIME PT MAY NEED IV ABT'S AT D/C. CM TO SPEAK TO PT TO DISUCSS HIIS ABILITY TO DO HOME IV ABT INFUSIONS AND CO-PAY AMT. CM WILL ASLO CONTACT JAKVA/GWENDOLYN TO DISCUSS CO-PAY WITH PT'S INSURANCE. CM WILL REMAIN AVAILABLE TO ASSIST AND FOLLOW NEEDED.
[2021-12-11 16:58] VITALS: BP 151/80
--- NOTE | 2021-12-11 17:00 | NUR ---
PT VANC TROUGH CH AT 26. PHARMACY CALLED AND STATES VANC DOSE WILL BE HELD FOR AT LEAST 24 HOURS.
[2021-12-11 20:20] VITALS: BP 159/78
[2021-12-12 00:09] VITALS: BP 141/66
--- NOTE | 2021-12-12 04:54 | NUR ---
PATIENT HAS REMAINED ALERT AND ORIENTED X 4. PLEASANT AND COOPERATIVE WITH CARES. TURING SELF. PILLOW AT END OF BED WITH LLE ELEVATED. DRESSING CLEAN AND DRY LLE. MEDS PER ORDER. VITAL SIGNS STABLE. DENIES PAIN. NPO AFTER 0800 TODAY PER PHYSICIAN NOTE FOR SURGERY AT 1630. PATIENT IS AWARE. FALL PRECAUTIONS IN PLACE. CONTINUE TO MONITOR.
[2021-12-12 05:14] LABS: HEMATOCRIT 27.7 % (42.0-52.0); HEMOGLOBIN 9.4 gm/dL (14.0-18.0); MCH 26.4 pg (26.0-34.0); MCHC 33.8 g/dL (28.0-37.0); MCV 78.2 fL (80.0-100.0); MPV 5.8 fl. (7.2-11.1); RBC 3.54 mil/uL (4.50-6.00); RDW-CV 15.9 % (10.5-14.5); WBC 6.1 thou/uL (4.0-11.0)
[2021-12-12 05:53] LABS: ALBUMIN 2.6 g/dL (3.4-5.0); CALCIUM 8.7 mg/dL (8.5-10.1); CREATININE 0.9 mg/dL (0.6-1.3); MAGNESIUM 1.8 mg/dL (1.8-2.4); POTASSIUM 3.7 mmol/L (3.5-5.1); TOTAL BILIRUBIN 0.4 mg/dL (<0.1-1.0); TOTAL PROTEIN 6.2 g/dL (6.4-8.2)
[2021-12-12 08:21] VITALS: BP 162/77
--- NOTE | 2021-12-12 14:39 | NUR ---
PLAN OF CARE: PLAN FOR THE PT TO D/C TO SNF WHEN MEDICALLY STABLE. CM SPOKE WITH THE PT TO DISCUSS THIS, AND PT IS IN AGREEMENT AND REQUEST THAT SNF REFERRAL BE FAXED TO [facility] AND [facility]. CM AWAITING A RETURN CALL FROM BOTH TO DISCUSS ABILITY TO ACCEPT THE PT FOR SNF. CM WILL REMAIN AVAILABLE TO ASSIST AND FOLLOW NEEDED.
--- NOTE | 2021-12-12 18:24 | NUR ---
ASSUMED PT CARE AT 0730. PT IS A&OX1. 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 NEW ORDER TO DISCHARGE PT TO [facility] FOR REHAB. [facility] HERE TO TRANSFER AT APPROX 1815. REPORT CALLED TO [facility].
[2021-12-12 20:00] VITALS: BP 156/76
--- NOTE | 2021-12-12 20:12 | NUR ---
PT RETURNED FROM SURGERY TO THIS UNIT AT APPROX 1900. DRESSING TO L FOOT IS DRY AND INTACT, PT DENIES ANY PAIN AT THIS TIME. FOOT ELEVATED 45 DEGREES, REPORT TO ONCOMING NURSE GIVEN.
[2021-12-13] VITALS: BP 140/78
[2021-12-13 09:00] VITALS: BP 138/73
--- NOTE | 2021-12-13 10:09 | NUR ---
PLAN OF CARE: INITIAL PLAN HAD BEEN FOR THE PT TO D/C TO SNF WHEN MEDICALLY STABLE AND PENDING ACCEPTANCE AND INSURANCE AUTH. CM RECEIVED A CALL FROM [facility] AND ADMISSIONS INFORMS OF INABILITY TO ACCEPT THE PT TO SNF D/T PT CURRENTLY BEING ON CHEMO MEDICATION AND THE FACILITY WOULD NEED TO PROVIDE THAT AND IT IS TOO EXPENSIVE. THIS MEDICATION WOULD COST THE FACILTY MORE THAN THEY WOUDL BE PAIN IN A DAY FROM THE INSURANCE FOR THE SKILLED THERAPIES. CM TO INFORM THE PT AND PHYSICIAN OF THIS INFO. CM WILL REMAIN AVAILABLE TO ASSIST AND FOLLOW NEEDED.
[2021-12-13 13:21] VITALS: BP 153/72
--- NOTE | 2021-12-13 14:07 | PATH ---
[address] [address] PATHOLOGY RPT PROCEDURE Name: ALEA,CRISTOFER Room: [facility]- ADM IN M.R.#: [id number] Admission: 12/07/21 Date of : 58 Discharge: Report #: [id number] Path Case #: [id number] LCA Accession Number: [id number] . 01 Material submitted: . foot - LEFT FOOT. Modifiers: left . 01 Clinical history: . GAS GANGRENE LEFT FOOT DIABETIC ULCER OF FOOT, OSTEOMYELITIS, LEUKOCYTOSIS . 02 Diagnosis: Left foot: - Benign left forefoot with: - Remotely, well-healed amputation of toe #1. - Necrosis of toe #3 soft tissue and bone, and osteomyelitis involving metatarsal #3 resection margin. - Several nonspecific ulcerations and osteomyelitis of phalangeal bone 5. - Metatarsals 2, 4 and 5 resection margins free of osteomyelitis. . (TRESSA:jacobo; 12/12/2021) MBR 12/13/2021 1023 Local . 02 Electronically signed: . Anders Bautista MD, Pathologist NPI- [id number] . 01 Gross description: . The specimen is received in formalin, labeled "Cristofer Cosby, left foot". Received is a left forefoot amputation, with the great toe having previously been remotely amputated with a well-healed amputation site, measuring 9.2 x 7.3 x 3.7 cm in greatest dimensions. The bone margins are blunt in appearance, consistent with transection, and are inked as follows: Metatarsal 2-black, metatarsal 3-blue, metatarsal 4-yellow, metatarsal 5-red. The distal aspect of toe 3 is brown-black, necrotic in appearance, and is removed from the specimen with no resistance. After removal of the distal aspect of toe 3, an ill-defined, irregular in contour and silveira-la lesion is identified measuring 2.6 x 2.4 cm with a circular defect measuring 1.0 x 0.4 cm, which exposes underlying bone. Between toes 4 and 5, on the medial aspect of toe 5, a second silveira-la lesion is identified measuring 1.8 x 1.2 cm. The remainder of the epidermal surface is pale la and wrinkled to flaky in appearance. The specimen is submitted representatively as follows: . A1 longitudinal cross-section through metatarsal 2 margin, following decalcification A2 longitudinal cross-section through necrotic distal aspect of toe 3, [place] [id number] PATHOLOGY RPT PROCEDURE Name: CRISTOFER COSBY Room: [address] IN ..#: [id number] Admission: 12/07/21 Date of : 58 Discharge: Report #: [id number] Path Case #: [id number] following decalcification A3 longitudinal cross-section through lesion (proximal to section and A2) on distal aspect of toe 3, following decalcification A4 longitudinal cross-section through metatarsal 3 margin, following decalcification A5 longitudinal cross-section through metatarsal 4 margin, following decalcification A6 horizontal cross-section through lesion on medial aspect of toe 5, following decalcification A7 longitudinal cross-section through metatarsal 5 margin, following decalcification. . Gross photographs are taken. (CAA; 12/11/2021) [facility] 12/12/2021 1036 Local . 02 Pathologist provided ICD-10: M86.8X7, L98.499 . 02 CPT . 039175, [id number] Specimen Comment: A courtesy copy of this report has been sent to [phone], [phone] Specimen Comment: [phone], Specimen Comment: Report sent to , DR JOHNSON / DR HIGGINS Specimen Comment: A duplicate report has been generated due to demographic updates. Performed at: [address] [facility] [address], [place] [id number] MD Kirt Dowling MD Phone: [phone] Performed at: 02 [facility] [address], [place], [place] [id number] MD Anders Bautista MD Phone: [phone]
--- NOTE | 2021-12-13 18:53 | NUR ---
ASSUMED PT CAARE AT 0730. PT IS PLEASANTLY A&OX4. CONVERSATIONAL AND COOPERATIVE. ASSESSMENT COMPLETED AND MEDICATIONS ADMINISTERED. NON WEIGHT BEAARING ON L FOOT AND ELEVATED WHILE IN BED. SAFETY MEASURES IN PLACE. PT HAD NO COMPLAINTS OF PAIN.
[2021-12-14 04:00] VITALS: BP 151/78
--- NOTE | 2021-12-14 05:22 | NUR ---
PATIENT SLEPT WELL DURING THIS SHIFT. PT WITH LT FOOT IN SURGICAL WRAP ELEVATED ON PILLOW. DSG C/D/I. PT DENIES PAIN DURING THIS SHIFT. PT WITH DARK YELLOW URINE PER URINAL. PT ABLE TO REPOSITION HIMSELF IN BED. PT IS MED/SURG AND IS NOT ON THE MONITOR. FREQUENTLY USED ITEMS AND CALL LIGHT WITHIN REACH. SIDERAILS UPX2 AND BED ALARM ON. WILL CONTINUE TO MONITOR.
[2021-12-14 08:00] VITALS: BP 135/64
--- NOTE | 2021-12-14 16:58 | NUR ---
PLAN OF CARE: PLAN TO CONSULT INPT ARU. PT WILL NEED REHAB WITH IV ABT'S, BUT SNF IS UNABLE TO ACCEPT THE PT D/T PT HAVING CHEMO MEDS THAT COST MORE THAN SNF. CM WILL REMAIN AVAILABLE TO ASSIST AND FOLLOW NEEDED.
[2021-12-14 17:20] VITALS: BP 144/78
--- NOTE | 2021-12-14 19:54 | NUR ---
DR. MARIN (PATIENT'S ONCOLOGIST) WANTS PATIENT TO CONTINUE TAKING ZYTIGA FOR THE PROSTATE CANCER. I LET DR. KHAN KNOW THAT THE MEDICATION SHOULD BE CONTINUED AND HE ASKED ME TO WRITE A NOTE ON THE CHART. IF ANY QUESTIONS REGARDING MEDICATION, PLEASE CONTACT DR. MARIN AT [phone].
[2021-12-14 22:16] VITALS: BP 153/77
[2021-12-15 04:00] VITALS: BP 123/81
--- NOTE | 2021-12-15 05:00 | NUR ---
PT A&OX4, VSS ON ROOM AIR, UP WITH ASSIST, IV SALINE LOCKED, MED SURG STATUS. LLE ELEVATED ORDERED. NO CO OF PAIN OR DISCOMFORT. PT SLEEPING WELL, WILL CONTINUE TO MONITOR.
[2021-12-15 08:00] VITALS: BP 126/71; BP 144/83
[2021-12-15 16:07] VITALS: BP 97/56
[2021-12-15 20:20] VITALS: BP 120/72
[2021-12-16] VITALS: BP 100/45
--- NOTE | 2021-12-16 04:21 | NUR ---
PT A&OX4, VSS ON ROOM AIR, PT UP WITH ASSIST, NWB TO LLE. NO CO PAIN OR DISCOMFORT. PT SLEEPING WELL, WILL CONTINUE TO MONITOR. MED/SURG STATUS.
[2021-12-16 08:00] VITALS: BP 161/86
[2021-12-16 16:09] VITALS: BP 141/76
[2021-12-16 20:00] VITALS: BP 143/72
[2021-12-17] VITALS: BP 129/73
--- NOTE | 2021-12-17 06:12 | NUR ---
ASSUMED CARE AT 1930. PATIENT RESTED IN BED ALL SHIFT. VOIDED PER URINAL. SLEPT WELL THROUGH NIGHT. JACQUIE PICC LINE FLUSHES WELL WITH GOOD BLOOD RETURN. TURNS SELF. DRESSING TO LLE C/D/I. SSI GIVEN AT HS, SEE MAR. NO C/O PAIN. HOURLY ROUNDS CONTINUE. BED ALARM ON. CALL LITE IN REACH.
[2021-12-17 08:00] VITALS: BP 160/83
[2021-12-17 16:00] VITALS: BP 152/70
--- NOTE | 2021-12-17 18:30 | NUR ---
RECEIVED REPORT. ASSUMED CARE OF PT AROUND 0730. AM ASSESSMENT AND VITALS COMPLETED CHARTED. MEDS PER EMAR. HOME MED IS NOW OUT - PT TO REORDER. DENIES CONCERNS THIS SHIFT. CALL EMERSON WITHIN REACH. HOURLY ROUNDING PERFORMED.
[2021-12-17 21:00] VITALS: BP 137/79
[2021-12-18 00:45] VITALS: BP 137/71
[2021-12-18 05:17] LABS: HEMATOCRIT 29.9 % (42.0-52.0); HEMOGLOBIN 10.1 gm/dL (14.0-18.0); MCH 26.9 pg (26.0-34.0); MCHC 33.7 g/dL (28.0-37.0); MCV 80.1 fL (80.0-100.0); MPV 6.4 fl. (7.2-11.1); RBC 3.73 mil/uL (4.50-6.00); RDW-CV 18.5 % (10.5-14.5); WBC 6.1 thou/uL (4.0-11.0)
[2021-12-18 05:31] LABS: ALBUMIN 2.9 g/dL (3.4-5.0); CALCIUM 8.6 mg/dL (8.5-10.1); CREATININE 0.9 mg/dL (0.6-1.3); POTASSIUM 3.9 mmol/L (3.5-5.1); TOTAL BILIRUBIN 0.4 mg/dL (<0.1-1.0); TOTAL PROTEIN 6.2 g/dL (6.4-8.2)
[2021-12-18 08:00] VITALS: BP 150/81
[2021-12-18 13:21] VITALS: BP 116/70
[2021-12-18] MEDS ORDERED: ROCEPHIN 11 GM/1001 IV (13:22)
[2021-12-18] MEDS ORDERED: METRONIDAZOLE500 M4 PO (13:22)
--- NOTE | 2021-12-18 16:05 | NUR ---
PLAN OF CARE: PLAN FOR THE PT TO D/C TO INPT ARU HERE TODAY PENDING NEGATIVE RAPID COVID RESULTS. PT IN AGREEMENT. CM WILL REMAIN AVAILABLE TO ASSIST AND FOLLOW NEEDED.
[2021-12-18 16:25] VITALS: BP 130/59
[2021-12-18] MEDS ORDERED: NOVOLOG100 UNIT/M SUBQ (17:23)
--- NOTE | 2021-12-18 18:53 | NUR ---
I ASSUMED CARE OF THE PATIENT AT 0700. HE IS ALERT AND ORIENTED AND UP WITH ASSIST OF 1 AND CAN STAND/PIVOT. HE IS NON-WEIGHT BEARING AND USES THE CALL LIGHT CORRECTLY. BED IS IN THE LOW LOCKED POSITION AND CALL LIGHT IS IN REACH. PATIENT NEEDS ARE MET DURING HOURLY ROUNDING. REPORT IS CALLED TO PHIL AND HE IS TAKEN TO REHAB AT 1810. HIS CANCER MEDS WILL BE DELIVERED TOMORROW VIA [employer] TO HIS HOME. HE WAS NEGATIVE COVID SWAB FOR SKILLED/REHAB ADMISSION. BLOOD GLUCOSE IS MONITORED.
== END 2021-12-18 18:10 | DRG 616 ==
LOC: M.ERS 17:31 → M.TBA-ER 19:46 → M.2W 19:46
PROVIDERS: Student in an Organized Health Care Education/Training Program; ADMIT Internal Medicine; ATTEND Internal Medicine
PROC: 0Y6N0ZB Detachment at Left Foot, Partial 2nd Ray, Open Approach (ICD-10-PCS; 2021-12-08)
PROC: 0Y6N0ZD Detachment at Left Foot, Partial 4th Ray, Open Approach (ICD-10-PCS; 2021-12-08)
PROC: 0Y6N0ZF Detachment at Left Foot, Partial 5th Ray, Open Approach (ICD-10-PCS; 2021-12-08)
PROC: 0Y6N0ZC Detachment at Left Foot, Partial 3rd Ray, Open Approach (ICD-10-PCS; 2021-12-08)
PROC: 0L8T0ZZ Division of Left Ankle Tendon, Open Approach (ICD-10-PCS; principal; 2021-12-12)
PROC: 0JBR0ZZ Excision of Left Foot Subcutaneous Tissue and Fascia, Open Approach (ICD-10-PCS; 2021-12-12)
PROC: 02HV33Z Insertion of Infusion Device into Superior Vena Cava, Percutaneous Approach (ICD-10-PCS; 2021-12-13)
DX: E11.69 Type 2 diabetes mellitus with other specified complication (principal); A48.0 Gas gangrene; M86.8X7 Other osteomyelitis, ankle and foot; L03.116 Cellulitis of left lower limb; E11.52 Type 2 diabetes mellitus with diabetic peripheral angiopathy with gangrene; I25.10 Atherosclerotic heart disease of native coronary artery without angina pectoris; I48.91 Unspecified atrial fibrillation; Z79.01 Long term (current) use of anticoagulants; Z20.822 Contact with and (suspected) exposure to COVID-19; Z85.46 Personal history of malignant neoplasm of prostate; Z85.820 Personal history of malignant melanoma of skin; I12.9 Hypertensive chronic kidney disease with stage 1 through stage 4 chronic kidney disease, or unspecified chronic kidney disease; E11.22 Type 2 diabetes mellitus with diabetic chronic kidney disease; N18.2 Chronic kidney disease, stage 2 (mild); Z79.4 Long term (current) use of insulin; D64.81 Anemia due to antineoplastic chemotherapy

== ENCOUNTER 2021-12-18 16:59 | Inpatient (IN) | payer BC ==
[~2021-12-18] VITALS: Ht 182.9 cm; Wt 104.6 kg
[~2021-12-18 16:59] MED LIST changes: +COZAAR 25 MG TA25 M1 PO; +METRONIDAZOLE500 M4 PO; +PREDNISONE 10 M10 MG PO; +ROCEPHIN 11 GM/1001 IV; +ZYTIGA250 MG PO
[2021-12-18] MEDS ORDERED: NOVOLOG100 UNIT/M SUBQ (17:23)
[2021-12-18 18:22] VITALS: BP 162/82
[2021-12-18 19:00] VITALS: BP 159/78
--- NOTE | 2021-12-19 06:02 | NUR ---
PT ARRIVED ON TO UNIT AT 1900. ALERT AND ORIENTED. PLEASANT. DENIED ANY PAIN. NWB LLE. LEFT LOWER LEG IN DRSG WRAP WITH SPLINT. JACQUIE JEROME PICC. USED URINAL. ADMISSION COMPLETED. PT SLEPT OFF AND ON. CALL LIGHT IN REACH AND BED ALARM ON.
[2021-12-19 06:50] LABS: HEMATOCRIT 31.2 % (42.0-52.0); HEMOGLOBIN 10.3 gm/dL (14.0-18.0); MCH 26.9 pg (26.0-34.0); MCHC 33.1 g/dL (28.0-37.0); MCV 81.2 fL (80.0-100.0); MPV 6.2 fl. (7.2-11.1); RBC 3.84 mil/uL (4.50-6.00); RDW-CV 18.6 % (10.5-14.5); WBC 6.7 thou/uL (4.0-11.0)
[2021-12-19 07:16] LABS: CALCIUM 8.8 mg/dL (8.5-10.1); CREATININE 0.9 mg/dL (0.6-1.3); TOTAL BILIRUBIN 0.4 mg/dL (<0.1-1.0); TOTAL PROTEIN 6.4 g/dL (6.4-8.2)
[2021-12-19 08:45] VITALS: BP 139/75
--- NOTE | 2021-12-19 12:54 | NUR ---
Nutrition: Pt admitted to rehab unit with Lt metatarsal amputation. H/o DM, afib, HTN, recent gangrene of foot, osteomyeltitis, cancer. He is eating well on CHO controlled diet. Wt: 225#. Labs: albumin 3, prealbumin 17.3, BG 154. Pt has had Jose before, RD will order. Recommend MVI as well. Increased nutrient needs R/T wound healing AEB wound present, labs above. Consider mild nutritioin risk.
--- NOTE | 2021-12-19 18:07 | NUR ---
ALERT AND ORIENTED X4. UP WITH 1 ASSIST, GAIT BELT AND WALKER. DRESSING REMAINS CLEAN AND DRY OVER INCISION LEFT FOOT. CONTINUES ON IV ANTIBIODIC, AND PO FLAGYL WITHOUT ADVERSE REACTIONS. CONTINENT OF BOWEL AND BLADDER. USES CALL LIGHT FOR ASSIST. FALL PRECAUTIONS IN PLACE. TAKES PILLS WITHOUT DIFFICULTY.
[2021-12-19 19:25] VITALS: BP 114/72
--- NOTE | 2021-12-19 20:50 | NUR ---
RESTING QUIETLY IN BED. LEFT LEG ELEVATED ON PILLOWS. PEDRO LUIS WRAP AROUND LEFT FOOT DRY/INTACT. DENIES PAIN. CALL LIGHT WITHIN REACH. SNACK PROVIDED.
[2021-12-20 05:33] LABS: HEMATOCRIT 29.7 % (42.0-52.0); HEMOGLOBIN 10.1 gm/dL (14.0-18.0); MCH 27.6 pg (26.0-34.0); MCV 81.2 fL (80.0-100.0); MPV 6.4 fl. (7.2-11.1); RBC 3.66 mil/uL (4.50-6.00); RDW-CV 18.8 % (10.5-14.5); WBC 7.7 thou/uL (4.0-11.0)
[2021-12-20 05:36] LABS: CALCIUM 8.6 mg/dL (8.5-10.1); CREATININE 0.8 mg/dL (0.6-1.3); POTASSIUM 3.8 mmol/L (3.5-5.1)
--- NOTE | 2021-12-20 05:56 | NUR ---
RESTED QUIETLY MOST OF THE NIGHT. DID WAKE UP YELLING AT ONE POINT. PATIENT STATES HAD A BAD DREAM ABOUT MEN COMING AFTER HIM. USED URINAL DURING THE NIGHT. RIGHT UPPER SINGLE PICC LINE INTACT WITH GOOD BLOOD RETURN. HOURLY ROUNDING IN PROGRESS.
[2021-12-20 07:28] VITALS: BP 131/82
--- NOTE | 2021-12-20 18:13 | NUR ---
AM ASSESSMENT AND VITAL SIGNS COMPLETED DOCUMENTED. PT WORKED WITH PT, OT AMD ST, TOLERATED WELL. IV ABX CONTINUE POST AMPUTATION. DR CARVALHO HERE TODAY AND ORDERED A TALL CAM BOOT FOR LEFT LOWER EXTREMITY. FALL PRECAUTIONS AND HOURLY ROUNDING CONTINUE.
[2021-12-20 19:00] VITALS: BP 115/68
[2021-12-21 03:53] LABS: ABSOLUTE BASOPHILS 0.1 thou/uL (0.0-0.2); ABSOLUTE EOSINOPHILS 0.1 thou/uL (0.0-0.7); ABSOLUTE LYMPHOCYTES 1.3 thou/uL (0.8-5.3); ABSOLUTE MONOCYTES 0.7 thou/uL (0.0-1.2); ABSOLUTE NEUTROPHILS 5.5 thou/uL (1.6-8.1); BASOPHILS 1.3 %; EOSINOPHILS 0.8 %; HEMATOCRIT 29.1 % (42.0-52.0); HEMOGLOBIN 9.8 gm/dL (14.0-18.0); LYMPHOCYTES 16.9 %; MCH 27.5 pg (26.0-34.0); MCHC 33.6 g/dL (28.0-37.0); MCV 81.8 fL (80.0-100.0); MONOCYTES 8.8 %; MPV 6.6 fl. (7.2-11.1); NUCLEATED RBCS 0 /100WBC; PLATELET COUNT* 237 thou/uL (150-400); POLYS 72.2 %; RBC 3.55 mil/uL (4.50-6.00); RDW-CV 18.7 % (10.5-14.5); WBC 7.6 thou/uL (4.0-11.0)
[2021-12-21 04:10] LABS: ALBUMIN 2.9 g/dL (3.4-5.0); CALCIUM 8.7 mg/dL (8.5-10.1); CREATININE 1.1 mg/dL (0.6-1.3); POTASSIUM 3.9 mmol/L (3.5-5.1); TOTAL BILIRUBIN 0.4 mg/dL (<0.1-1.0); TOTAL PROTEIN 5.9 g/dL (6.4-8.2)
--- NOTE | 2021-12-21 04:38 | NUR ---
ASSUMED PT CARE AT 1930. PT ALERT AND ORIENTED X4, POLITE AND COOPERATIVE WITH CARES. PEDRO LUIS WRAP TO LEFT FOOT C/D/I. NWB TO LLE. DENIED PAIN. SINGLE LUMEN PICC TO JACQUIE FLUSHES EASILY WITH GOOD BLOOD RETURN. LABS OBTAINED. PT SLEPT WELL OVERNIGHT. VOIDED PER URINAL. CALL LIGHT IN REACH, BED ALARM ON FOR SAFETY. HOURLY ROUNDING IN PROGRESS, WILL CONTINUE TO MONITOR.
[2021-12-21 06:05] LABS: ESR (SEDRATE) 31 mm/hr (0-20)
[2021-12-21 08:00] VITALS: BP 125/66
--- NOTE | 2021-12-21 16:35 | NUR ---
INITIAL ASSESSMENT: PATIENT ADMITTED TO THE [facility] ON 12/18/21 WITH A DIAGNOSIS OF LEFT TRANSMETATARSAL AMPUTATION. PT A&O. PT NORMALLY ACTIVE AND INDEPENDENT. PT USES WALKER FOR MOBILITY. NO OTHER DME. PT HAS PAST HX OF HH. PT HAS 0 HX OF SNF. CM ORIENTED THE PT TO THE [facility] AND PROCESSES, RESIDENTS RIGHTS INFO, TEAM CONFRENCE, AND TO THE ROLE OF CM. CM WILL REMAIN AVAILABLE TO ASSIST AND FOLLOW NEEDED.
[2021-12-21 19:29] VITALS: BP 138/67
--- NOTE | 2021-12-21 21:00 | NUR ---
RESTING IN BED WITH LEFT LEG ELEVATED ON A PILLOW. VERY TALKATIVE. DENIES PAIN. VOIDS DARK/YELLOW URINE PER URINAL. GOOD BLOOD RETURN FROM RIGHT UPPER SINGLE LUMEN PICC LINE. CALL LIGHT WITHIN REACH.
--- NOTE | 2021-12-22 05:29 | NUR ---
AWAKE UNTIL ABOUT 0400. TALKED ON THE PHONE ALL NIGHT. USED URINAL DURING THE NIGHT. HOURLY ROUNDING IN PROGRESS.
[2021-12-22 07:40] VITALS: BP 125/73
--- NOTE | 2021-12-22 17:02 | NUR ---
PT WORKED WITH THERAPIES. NWB TO LLE. CAM BOOT IN PLACE. DRESSING WITH PEDRO LUIS WRAP C/D/I. JACQUIE PICC. CALL LIGHT IN REACH. FALL PRECAUTIONS IN PLACE.
[2021-12-22 20:05] VITALS: BP 94/55
--- NOTE | 2021-12-23 06:54 | NUR ---
ASSUMED PT CARE AT 1930. ASSESSMENT COMPLETED CHARTED. ABLE TO MAKE NEEDS KNOWN. UP WITH 1 ASSIST TO BSC. RESTING IN BED ALL NIGHT. YELLED OUT AROUND 0610, WENT TO CHECK ON PT AND WOKE HIM UP, STATING HE WAS HAVING A NIGHTMARE. NO C/O PAIN OR DISCOMFORT. WILL CONTINUE TO MONITOR.
[2021-12-23 07:29] VITALS: BP 147/78
--- NOTE | 2021-12-23 17:22 | NUR ---
PT IS UP WITH GAIT BELT AND WALKER FOR BALANCE, PT HAD AMP OF LT TOES. PT IS NON WB ON FT FOOT. PT DOES HAVE CAM BOOT ON. PT IS A&O X4. PT ON RM AIR. PT HAS RT UPPER ARM PICC. NO COMPLAINTS OF PAIN. PT COMPLETED ALL THERAPY. PT IS RESTING IN CHAIR WITH CALL LIGHT IN REACH.
[2021-12-23 20:00] VITALS: BP 109/68
[2021-12-24 08:03] VITALS: BP 136/77
--- NOTE | 2021-12-24 17:57 | NUR ---
AM ASSESSMENT AND VITAL SIGNS COMPLETED DOCUMENTED. PT HAS BEEN UP IN HIS ROOM IN A WHEELCHAIR MOST OF THIS SHIFT. DRESSING TO THE LEFT FOOT IS C/D/I WITH CAM BOOT ON AT ALL TIMES. PT MAINTAINS NON WEIGHT BEARING STATUS WITH TRANSFERS. NO C/O PAIN OR DISCOMFORT. FALL PRECAUTIONS AND HOURLY ROUNDING CONTINUE.
[2021-12-24 19:22] VITALS: BP 92/59
--- NOTE | 2021-12-25 05:02 | NUR ---
ASSUMED PT CARE AT 1930. PT ALERT AND ORIENTED X4, POLITE AND COOPERATIVE WITH CARES. SITTING UP IN WHEELCHAIR AT SHIFT CHANGE WATCHING TV. DRESSING TO LEFT FOOT C/D/I. NON-WT BEARING WITH TRANSFERS. CAM BOOT ON AT ALL TIMES. DENIED PAIN. VOIDED PER URINAL. PICC TO JACQUIE. CALL LIGHT IN REACH, BED ALARM ON FOR SAFETY. HOURLY ROUNDING IN PROGRESS, WILL CONTINUE TO MONITOR.
[2021-12-25 07:45] VITALS: BP 138/59
--- NOTE | 2021-12-25 17:31 | NUR ---
PATIENT COMPLETED THERAPIES THIS SHIFT ORDERED. UP WITH ASSISTANCE; WALKER AND GAIT BELT. LEFT CAM BOOT IN PLACE AND REMAINS NWB. DRESSING/SKIN INTACT. PATIENT SHOWERED TODAY. RIGHT UPPER ARM PICC FLUSHING WITHOUT DIFFICULTY AND GOOD BLOOD RETURN NOTED, SCHED ABX INFUSED THIS AM. NO COMPLAINTS OF PAIN. INSULIN GIVEN WITH MEALS ORDERED. BM NOTED THIS SHIFT, VOIDING PER URINAL.
[2021-12-25 19:00] VITALS: BP 113/62
--- NOTE | 2021-12-26 06:16 | NUR ---
ASSUMED PT CARE AT 1930. PT ALERT AND ORIENTED X4, POLITE AND COOPERATIVE WITH CARES. PT SITTING IN WHEELCHAIR WATCHING TELEVISION AT SHIFT CHANGE. GOES TO BED LATE. UP WITH MIN ASSIST, GAIT BELT AND WALKER. NWB TO LEFT FOOT, CAM BOOT IN PLACE. DRESSING TO LEFT FOOT C/D/I. PICC TO JACQUIE. DENIES PAIN. STOOL X2 THIS SHIFT. USES URINAL TO VOID OVERNIGHT. CALL LIGHT IN REACH, BED ALARM ON FOR SAFETY. HOURLY ROUNDING COMPLETE.
[2021-12-26 07:20] VITALS: BP 147/67
--- NOTE | 2021-12-26 15:04 | NUR ---
PATIENT COMPLETED THERAPIES THIS SHIFT ORDERED. NO COMPLAINTS OF PAIN. UP WITH ASSISTANCE; GAIT BELT AND WALKER, NWB WITH CAM BOOT TO LEFT LE. DRESSING IN PLACE. PICC LINE SL, SCHED ABX INFUSED THIS AM. FLUSHING WITHOUT DIFFICULTY AND GOOD BLOOD RETURN NOTED. INSULIN GIVEN WITH MEALS ORDERED. REPORT GIVEN TO KALYANI RAM AT THIS TIME.
--- NOTE | 2021-12-26 15:22 | NUR ---
ASSUMED CARE OF PT. REPORT RECEIVED FROM KALYANI VILLARREAL. AM ASSESSMENT REVIEWED. NO NEW FINDINGS WHEN REASSESSED.
[2021-12-26 19:00] VITALS: BP 126/74
[2021-12-27 04:14] LABS: CALCIUM 8.5 mg/dL (8.5-10.1); CREATININE 0.9 mg/dL (0.6-1.3); POTASSIUM 3.6 mmol/L (3.5-5.1)
[2021-12-27 04:44] LABS: HEMATOCRIT 28.8 % (42.0-52.0); HEMOGLOBIN 9.6 gm/dL (14.0-18.0); MCH 27.1 pg (26.0-34.0); MCHC 33.3 g/dL (28.0-37.0); MCV 81.4 fL (80.0-100.0); MPV 6.7 fl. (7.2-11.1); RBC 3.54 mil/uL (4.50-6.00); RDW-CV 18.8 % (10.5-14.5); WBC 4.8 thou/uL (4.0-11.0)
--- NOTE | 2021-12-27 06:34 | NUR ---
ASSUMED CARE AT 1900. ALERT AND ORIENTED. PLEASANT. DENIED ANY PAIN. NWB LLE. DRSG TO LEFT FOOT INTACT WITH CAM BOOT IN PLACE. MIN ASSIST WITH GAIT BELT AND WALKER. STAND AND PIVOT. UP TO BSC OR USED URINAL. JACQUIE PICC. SLEPT OFF AND ON. CALL LIGHT IN REACH AND BED ALARM ON.
[2021-12-27 07:20] VITALS: BP 143/86
--- NOTE | 2021-12-27 15:55 | NUR ---
TEAM CONFRENCE MEETING HELD TODAY. PLAN FOR THE PT TO D/C HOME WITH HH AND IV ABT'S SATURDAY. PT PROGRESSING WELL TOWARDS GOALS. CM TO ASSIST WITH ARRANGING IV ABT'S AND BED SIDE TEACHING. CM WILL REMAIN AVAILABLE TO ASSIST AND FOLLOW NEEDED.
--- NOTE | 2021-12-27 16:51 | NUR ---
PATIENT COMPLETED THERAPIES THIS SHIFT ORDERED. UP WITH ASSISTANCE, GAIT BELT AND WALKER. CAM BOOT IN PLACE TO LEFT FOOT. DRESSING CHANGED THIS SHIFT BY DR. CARVALHO, WILL SEE PATIENT IN CLINIC ON SATURDAY. VOIDING PER URINAL, BM NOTED X 2 VIA BSC THIS SHIFT. IV ABX INFUSED THIS AM ORDERED, PICC SL. SPOKE WITH DR. WILSON FROM ID AND ABX TO RESUME ORDERED UNTIL 01/[address] AND FO[address] UP WITH DR. SHAW AFTER DISCHARGE FOR MAINTENCE AND LABS. INSULIN GIVEN WITH MEALS ORDERED. TEAM MEETING TODAY, DISCHARGE SATURDAY.
[2021-12-27 20:04] VITALS: BP 138/82
--- NOTE | 2021-12-28 06:41 | NUR ---
ASSUMED PT CARE AT 1930. ASSESSMENT COMPLETED CHARTED. ABLE TO MAKE NEEDS KNOWN. UP WITH 1 TO BSC. NO C/O PAIN OR DISCOMFORT. USED URINAL AT NIGHT. PT WOKE UP AT AROUND 4AM NOT ABLE TO SLEEP MORE. RESTING IN BED ALL NIGHT OTHERWISE. WILL CONTINUE TO MONITOR.
[2021-12-28 07:31] VITALS: BP 166/74
[2021-12-28 20:12] VITALS: BP 149/80
[2021-12-29] MEDS ORDERED: CEFTRIAXONE2 G1 INJECTION (07:17)
[2021-12-29] MEDS ORDERED: METRONIDAZOLE500 M4 PO (07:17)
[2021-12-29 08:00] VITALS: BP 142/76
[2021-12-29 09:20] VITALS: BP 142/76
[2021-12-29 09:29] VITALS: BP 142/76
[2021-12-29 10:47] VITALS: BP 142/76
--- NOTE | 2021-12-29 11:33 | NUR ---
AM ASSESSMENT AND VITAL SIGNS COMPLETED DOCUMENTED. DRESSING TO RIGHT UPPER ARM PICC LINE CHANGED. DISCHARGE INSTRUCTIONS AND PRESCRIPTIONS DISCUSSED WITH PATIENT, PRINTED COPY PROVIDED. PATIENT'S HOME MEDICATIONS RETURNED TO HIM.
--- NOTE | 2021-12-29 12:00 | NUR ---
PATIENT AND BELONGINGS TRANSPORTED VIA WHEELCHAIR TO THE EXIT. DISCHARGED HOME IN STABLE CONDITION.
== END 2021-12-29 12:01 | disposition home or self-care (01) | DRG 947 ==
LOC: M.REH 16:59
PROVIDERS: Internal Medicine; ADMIT Physical Medicine & Rehabilitation; ATTEND Physical Medicine & Rehabilitation
PROC: 05HY33Z Insertion of Infusion Device into Upper Vein, Percutaneous Approach (ICD-10-PCS; principal; 2021-12-26)
DX: R53.81 Other malaise (principal); A48.0 Gas gangrene; M86.8X7 Other osteomyelitis, ankle and foot; E11.52 Type 2 diabetes mellitus with diabetic peripheral angiopathy with gangrene; E11.22 Type 2 diabetes mellitus with diabetic chronic kidney disease; N18.2 Chronic kidney disease, stage 2 (mild); I12.9 Hypertensive chronic kidney disease with stage 1 through stage 4 chronic kidney disease, or unspecified chronic kidney disease; I25.10 Atherosclerotic heart disease of native coronary artery without angina pectoris; I48.91 Unspecified atrial fibrillation; E11.69 Type 2 diabetes mellitus with other specified complication; D64.9 Anemia, unspecified; Z85.46 Personal history of malignant neoplasm of prostate; Z89.432 Acquired absence of left foot